=== PATIENT | male | born 1985 | race Caucasian/White ===

== ENCOUNTER 2017-08-18 15:27 | Inpatient (IN) | payer BC ==
[~2017-08-18] VITALS: Ht 190.5 cm; Wt 83.5 kg
[2017-08-18 16:21] LABS: HEMATOCRIT 39.2 % (38.0-50.0); MCH 33.2 PG (29.0-34.0); MCHC 34.9 G/DL (30.0-36.0); MCV 94.9 FL (86-99); MEAN PLAT.VOLUME 8.9 uM^3 (9.0-12.4); PLATELET COUNT 147 K/uL (156-360); RBC DIS.WIDTH-CV 11.9 % (11.8-14.6); RBC DIS.WIDTH-SD 41.4 % (39-53); RED BLOOD COUNT 4.13 M/uL (4.00-5.50); WHITE BLOOD COUNT 4.9 K/uL (4.1-10.2)
[2017-08-18 16:37] LABS: CHLORIDE 99 mEq/L (99-109); POTASSIUM 4.3 mEq/L (3.7-5.4); SODIUM 135 mEq/L (136-147)
[2017-08-18 16:39] LABS: GLUCOSE 170 mg/dL (70-99)
[2017-08-18 16:40] LABS: ANION GAP 12 MEQ/L (2-14)
[2017-08-18 16:41] LABS: TOTAL BILIRUBIN 1.3 mg/dL (0.0-1.0)
[2017-08-18 16:42] LABS: SERUM ETHYL ALCOHOL < 10 mg/dL
[2017-08-18 16:43] LABS: ALKALINE PHOSPHATASE 105 IU/L (3-129); GFR ESTIMATE (CALCULATED) > 59 mL/min/
[2017-08-18 16:44] LABS: UREA NITROGEN (BUN) 6 mg/dL (9-23)
[2017-08-18 16:46] LABS: LIPASE 32 U/L (1.0-51.0)
[2017-08-18 16:49] LABS: TROP-I INTERPRETATION NEGATIVE; TROPONIN-I < 0.01 ng/mL (0.0-0.30)
[2017-08-18] MEDS ORDERED: BUSPIRONE HCL5 MG PO (18:44)
[2017-08-18 20:04] LABS: AMPHETAMINE NEGATIVE (500 ng/mL); BARBITURATES NEGATIVE (200 ng/mL); BENZODIAZEPINES NEGATIVE (150 ng/mL); COCAINE NEGATIVE (150 ng/mL); INTERNAL CONTROLS VALID? YES; METHADONE NEGATIVE (200 ng/mL); METHAMPHETAMINE NEGATIVE (500 ng/mL); OPIATES (MORPHINE) NEGATIVE (100 ng/mL); OXYCODONE NEGATIVE (100 ng/mL); PHENCYCLIDINE NEGATIVE (25 ng/mL); PROPOXYPHENE NEGATIVE (300 ng/mL); THC CANNABINOIDS NEGATIVE (50 ng/mL); TRICYCLIC ANTIDEPRESSANTS NEGATIVE (300 ng/mL)
[2017-08-18 21:11] LABS: MAGNESIUM 2.2 mg/dL (1.3-2.7)
[2017-08-18 21:35] VITALS: BP 140/74
[2017-08-18 23:43] VITALS: BP 130/66
[2017-08-19 06:13] LABS: HEMATOCRIT 39.6 % (38.0-50.0); MCH 33.5 PG (29.0-34.0); MCHC 34.8 G/DL (30.0-36.0); MCV 96.1 FL (86-99); MEAN PLAT.VOLUME 9.6 uM^3 (9.0-12.4); PLATELET COUNT 131 K/uL (156-360); RBC DIS.WIDTH-CV 11.8 % (11.8-14.6); RBC DIS.WIDTH-SD 41.6 % (39-53); RED BLOOD COUNT 4.12 M/uL (4.00-5.50); WHITE BLOOD COUNT 7.8 K/uL (4.1-10.2)
[2017-08-19 06:34] LABS: INTER. NORMALIZED RATIO 1.1; PROTHROMBIN TIME 12.4 SEC (10.2-12.9)
[2017-08-19 06:39] LABS: ALKALINE PHOSPHATASE 81 IU/L (3-129); ANION GAP 10 MEQ/L (2-14); CHLORIDE 99 MEQ/L (99-109); GFR ESTIMATE (CALCULATED) > 59 mL/min/; POTASSIUM 3.8 MEQ/L (3.7-5.4); SAMPLE HEMOLYSIS CHECK 0; SAMPLE ICTERIC CHECK 0; SAMPLE LIPEMIA CHECK 0; SODIUM 135 MEQ/L (136-147); TOTAL BILIRUBIN 1.9 MG/DL (0.0-1.0); UREA NITROGEN (BUN) 8 mg/dL (9-23)
[2017-08-19 06:42] VITALS: BP 134/81
[2017-08-19 06:43] LABS: GLUCOSE 79 mg/dL (70-99)
[2017-08-19 11:26] VITALS: BP 111/61
[2017-08-19 15:22] VITALS: BP 120/67
[2017-08-19 19:53] VITALS: BP 129/75
[2017-08-19 22:52] VITALS: BP 136/76
[2017-08-20 03:33] VITALS: BP 135/71
[2017-08-20 06:31] LABS: BASOPHIL COUNT 0.1 K/uL (0-0.1); EOSINOPHIL (%) 2.1 % (0-5); EOSINOPHIL COUNT 0.2 K/uL (0-0.3); HEMATOCRIT 39.7 % (38.0-50.0); IMMATURE GRANULOCYTE (%) 0.7 % (0.0-0.7); IMMATURE GRANULOCYTE COUNT 0.1 K/uL; LYMPHOCYTE COUNT 1.1 K/uL (1.0-2.8); MCH 32.8 PG (29.0-34.0); MCHC 33.5 G/DL (30.0-36.0); MEAN PLAT.VOLUME 9.5 uM^3 (9.0-12.4); MONOCYTE (%) 2.5 % (3-12); MONOCYTE COUNT 0.2 K/uL (0-0.8); NEUTROPHIL (%) 79.7 % (45-76); PLATELET COUNT 114 K/uL (156-360); RBC DIS.WIDTH-CV 11.8 % (11.8-14.6); RBC DIS.WIDTH-SD 42.5 % (39-53); RED BLOOD COUNT 4.05 M/uL (4.00-5.50); WHITE BLOOD COUNT 7.6 K/uL (4.1-10.2)
[2017-08-20 07:11] LABS: ANION GAP 10 MEQ/L (2-14); CHLORIDE 101 MEQ/L (99-109); GFR ESTIMATE (CALCULATED) > 59 mL/min/; GLUCOSE 78 mg/dL (70-99); POTASSIUM 3.8 MEQ/L (3.7-5.4); SAMPLE HEMOLYSIS CHECK 0; SAMPLE ICTERIC CHECK 0; SAMPLE LIPEMIA CHECK 0; SODIUM 138 MEQ/L (136-147); UREA NITROGEN (BUN) 10 mg/dL (9-23)
[2017-08-20 08:28] VITALS: BP 130/70
[2017-08-20 09:08] LABS: ALKALINE PHOSPHATASE 81 IU/L (3-129); DIRECT BILIRUBIN 0.5 mg/dL (0.0-0.3); TOTAL BILIRUBIN 2.1 MG/DL (0.0-1.0)
[2017-08-20 11:20] VITALS: BP 140/77
[2017-08-20 12:41] LABS: HBSG INDEX 0.23
[2017-08-20 12:42] LABS: HPCA INDEX 0.13
[2017-08-20 12:43] LABS: ANTI-HEPATITIS A VIRUS (IGM) Nonreactive; ANTI-HEPATITIS B CORE (IGM) Nonreactive; HAV INDEX 0.22; HBC IgM INDEX 0.12
[2017-08-20 13:38] LABS: PROTHROMBIN TIME 11.4 SEC (10.2-12.9)
[2017-08-20 13:55] LABS: DIRECT BILIRUBIN 0.4 mg/dL (0.0-0.3); TOTAL BILIRUBIN 1.7 MG/DL (0.0-1.0)
[2017-08-20 14:19] LABS: ALKALINE PHOSPHATASE 89 IU/L (3-129)
[2017-08-20 15:30] VITALS: BP 137/75
[2017-08-20] MEDS ORDERED: FOLIC ACID1 MG PO (17:18)
[2017-08-20] MEDS ORDERED: Thiamine,Vitamin B1 PO (17:18)
== END 2017-08-20 18:30 | disposition home or self-care (01) | DRG 896 ==
LOC: EME 15:27 → EDOF 20:03 → 5EAST 20:03 → ENRESERV 20:04 → 5EAST 21:07
PROVIDERS: Emergency Medicine; Hospitalist; Physician Assistant
PROC: HZ2ZZZZ Detoxification Services for Substance Abuse Treatment (ICD-10-PCS; principal; 2017-08-19)
DX: F10.239 Alcohol dependence with withdrawal, unspecified (principal); R56.9 Unspecified convulsions; K72.00 Acute and subacute hepatic failure without coma; K70.10 Alcoholic hepatitis without ascites; D69.59 Other secondary thrombocytopenia; R74.0 Nonspecific elevation of levels of transaminase and lactic acid dehydrogenase [LDH]; R04.0 Epistaxis; F41.9 Anxiety disorder, unspecified; S01.512A Laceration without foreign body of oral cavity, initial encounter; F17.210 Nicotine dependence, cigarettes, uncomplicated; Z82.49 Family history of ischemic heart disease and other diseases of the circulatory system; Z82.5 Family history of asthma and other chronic lower respiratory diseases; Z83.3 Family history of diabetes mellitus
CPT/HCPCS: 76705; 80048; 80053; 80074; 80076; 83690; 83735; 84484; 85025; 85027; 85610; 93005; 95819; 99281; 99285; G0480; J1953; J2060; J7030; J7050